=== PATIENT | female | born 1985 | race Hispanic/Latino ===

== ENCOUNTER 2022-04-22 12:25 | Emergency (ER) | payer SELFPAY ==
[2022-04-22] MEDS ORDERED: Ketorolac Tromethamine 30 MG/ML VIAL ONE (14:41)
[2022-04-22 15:48] LABS: Bilirubin Neg (Negative); Blood, Urine Negative (Negative); Glucose, Urine (Dipstick) >=1000 mg/dL (Negative); Ketone, Urine 5 mg/dL (Negative); Leukocyte 25 (Negative); Nitrite Negative (Negative); Protein, Urine (Dipstick) 15 mg/dl (Neg-Trace)
[2022-04-22 15:50] LABS: Clarity Cloudy (Clear)
[2022-04-22 15:51] LABS: Pregnancy Test - Urine (BHCG) Negative (Negative); Pregu Control Background? CLEAR/WHITE (CLR/WHITE); Pregu Control Bar Appear? YES (CONTROL BAR)
[2022-04-22 16:15] LABS: Bacteria/HPF 3+ HPF (None Seen); RBC/HPF 0-3 HPF (0-3); WBC/HPF 0-3 HPF (0-3)
[2022-04-22 16:16] LABS: Mucous/LPF 4+ LPF (<2+)
== END 2022-04-22 16:53 ==
LOC: CSHERS 12:25
DX: N30.00 Acute cystitis without hematuria (principal); M53.3 Sacrococcygeal disorders, not elsewhere classified; E11.9 Type 2 diabetes mellitus without complications; E66.9 Obesity, unspecified; F17.210 Nicotine dependence, cigarettes, uncomplicated
CPT/HCPCS: 72170; 72220; 81003; 81015; 81025; 87086; 96372; J1885

== ENCOUNTER 2024-02-23 21:47 | Emergency (ER) | payer OTHER, SELFPAY ==
[2024-02-23] MEDS ORDERED: Ketorolac Tromethamine 30 MG (1 mL) VIAL ONE (22:18)
[2024-02-23] MEDS ORDERED: Methocarbamol 500 MG TAB ONE (22:18)
== END 2024-02-23 22:33 | disposition home or self-care (01) ==
LOC: CSHERS 21:47
DX: M43.6 Torticollis (principal); E11.9 Type 2 diabetes mellitus without complications; Z87.891 Personal history of nicotine dependence
CPT/HCPCS: 96372; 99283; J1885